=== PATIENT | male | born 1940 | race Two or more races ===

== ENCOUNTER 2018-06-09 19:09 | Inpatient (IN) | payer OTHER, MEDICAID ==
[~2018-06-09] VITALS: Ht 167.6 cm; Wt 71.4 kg
[2018-06-09 20:06] LABS: Basophils # (auto) 0.1 uL; Basophils % (auto) 0.9 % (0.0-2.0); Eosinophils # (auto) 0.2 uL; Hematocrit 31.2 % (41.0-53.0); Hemoglobin 10.9 g/dL (13.5-17.5); Lymphocytes # (auto) 1.6 uL; Lymphocytes % (auto) 26.6 % (10.0-50.0); Mean Corpuscular Hemoglobin 31.2 pg (28.0-32.0); Mean Corpuscular Volume 89.2 fL (80.0-100.0); Monocytes # (auto) 0.6 uL; Monocytes % (auto) 9.3 % (0.0-12.0); Neutrophils # (auto) 3.5 uL; Neutrophils % (auto) 59.2 % (37.0-80.0); Platelet Count (auto) 183 10^3/uL (140-450); Red Cell Distribution Width 14.5 % (11.8-14.3); White Blood Cell 5.9 10^3/uL (4.4-10.8)
[2018-06-09 20:14] LABS: Calcium 8.1 mg/dL (8.5-10.1); Chloride 110 mmol/L (98-107); Potassium 3.6 mmol/L (3.5-5.1); Sodium 144 mmol/L (136-145)
[2018-06-09 20:18] LABS: Alanine Aminotransferase 16 U/L (16-61); Albumin 3.3 g/dL (3.4-5.0); Anion Gap 9 (5-15); Aspartate Aminotransferase 15 U/L (15-37); BUN/Creatinine Ratio 20.5; Blood Urea Nitrogen 16 mg/dL (7-18); Carbon Dioxide 25 mmol/L (21-32); GFR African American 124 mL/min; GFR Non-African American 102 mL/min; Glucose 104 mg/dL (74-106); Magnesium 2.5 mg/dL (1.6-2.6)
[2018-06-09 20:22] LABS: Alkaline Phosphatase 64 U/L (45-117); Bilirubin, Total 0.3 mg/dL (0.2-1.0)
[2018-06-09] MEDS ORDERED: ONDANSETRON HCL 4 MG/2 ML VIAL IV ONE (21:45)
[2018-06-09] MEDS ORDERED: MORPHINE SULF INJ 2 MG/ML SYRINGE 1ML IV ONE (21:45)
[2018-06-09 22:28] LABS: INR 0.92 (0.9-1.15); Prothrombin Time 9.9 sec (9.27-12.13)
[2018-06-09] MEDS ORDERED: MORPHINE SULF INJ 2 MG/ML SYRINGE 1ML IV PRN (23:30)
[2018-06-09] MEDS ORDERED: NITROGLYCERIN 0.4 MG SL TAB SL PRN (23:30)
[2018-06-10] VITALS (8 sets, daily range): BP systolic 145–178; BP diastolic 53–86
[2018-06-10] MEDS ORDERED: ACETAMINOPHEN 500 MG TAB PO PRN (00:45)
[2018-06-10] MEDS ORDERED: ONDANSETRON HCL 4 MG/2 ML VIAL IV PRN (00:45)
[2018-06-10] MEDS ORDERED: LACTULOSE 20Gm/30ML SOLN PO PRN (00:45)
[2018-06-10] MEDS ORDERED: LORazepam 0.5 MG TAB PO PRN (00:45)
[2018-06-10] MEDS ORDERED: TEMAZEPAM 15 MG CAP PO PRN (00:45)
[2018-06-10] MEDS: HYDROcodone-ACET 5/325MG TAB PO PRN ×3 (06:37→21:42)
[2018-06-10 07:44] LABS: Basophils # (auto) 0 uL; Basophils % (auto) 0.7 % (0.0-2.0); Eosinophils # (auto) 0.2 uL; Eosinophils % (auto) 3.8 % (0.0-7.0); Hematocrit 31.2 % (41.0-53.0); Hemoglobin 10.9 g/dL (13.5-17.5); Lymphocytes # (auto) 1.3 uL; Lymphocytes % (auto) 23.6 % (10.0-50.0); Mean Corpuscular Hemoglobin 30.8 pg (28.0-32.0); Monocytes # (auto) 0.4 uL; Neutrophils # (auto) 3.4 uL; Neutrophils % (auto) 63.9 % (37.0-80.0); Nucleated Red Blood Cells % 0.2 %; Platelet Count (auto) 173 10^3/uL (140-450); Red Blood Cells 3.54 10^6/uL (4.5-5.90); Red Cell Distribution Width 14.9 % (11.8-14.3); White Blood Cell 5.3 10^3/uL (4.4-10.8)
[2018-06-10 08:20] LABS: Anion Gap 8 (5-15); Carbon Dioxide 25 mmol/L (21-32); Chloride 109 mmol/L (98-107); Sodium 142 mmol/L (136-145)
[2018-06-10 08:21] LABS: BUN/Creatinine Ratio 23.3; Blood Urea Nitrogen 17 mg/dL (7-18); Calcium 8.4 mg/dL (8.5-10.1); GFR African American 134 mL/min; GFR Non-African American 110 mL/min; Glucose 104 mg/dL (74-106)
[2018-06-10 09:07] LABS: Urine Bacteria NONE SEEN /hpf (None Seen); Urine Blood Negative /uL (Negative); Urine Specific Gravity 1.023 (1.001-1.035); Urine WBC <1 /hpf (0 - 3)
[2018-06-10] MEDS: amLODIPine BESYLATE 5 MG TAB PO SCH (09:21)
[2018-06-10] MEDS: METOPROLOL TARTRATE 25 MG TAB PO SCH ×2 (09:21→21:40)
[2018-06-10] MEDS: FAMOTIDINE 20 MG TAB PO SCH (09:23)
[2018-06-10] MEDS ORDERED: LISINOPRIL 10 MG TAB PO SCH (10:00)
[2018-06-10] MEDS ORDERED: HCTZ 25 MG TAB PO ONE (17:00)
[2018-06-10] MEDS ORDERED: POTASSIUM CHL 10 Meq TABLET PO ONE (17:00)
[2018-06-10] MEDS ORDERED: hydrALAZINE HCL 25 MG TAB PO PRN (17:00)
[2018-06-10] MEDS: LISINOPRIL 10 MG TAB PO SCH (21:41)
[2018-06-11] VITALS (7 sets, daily range): BP systolic 107–137; BP diastolic 54–68
[2018-06-11] MEDS: HYDROcodone-ACET 5/325MG TAB PO PRN ×2 (01:46→11:41)
[2018-06-11] MEDS: FAMOTIDINE 20 MG TAB PO SCH (09:42)
[2018-06-11] MEDS: METOPROLOL TARTRATE 25 MG TAB PO SCH ×2 (09:42→22:00)
[2018-06-11] MEDS: amLODIPine BESYLATE 5 MG TAB PO SCH (09:43)
[2018-06-11] MEDS: LISINOPRIL 10 MG TAB PO SCH ×3 (09:43→22:00)
[2018-06-11] MEDS ORDERED: HCTZ 25 MG TAB PO SCH (10:00)
[2018-06-11] MEDS ORDERED: POTASSIUM CHL 10 Meq TABLET PO SCH (10:00)
[2018-06-11] MEDS ORDERED: METO-158 PO (17:57)
[2018-06-11] MEDS ORDERED: TIMO0.5S38 EACHEYE (17:57)
[2018-06-11] MEDS ORDERED: ATOR20TA50 PO (17:57)
[2018-06-11] MEDS ORDERED: LISI10TA6 PO (17:57)
[2018-06-11] MEDS ORDERED: FAMO-12 PO (17:57)
[2018-06-12] VITALS (7 sets, daily range): BP systolic 106–152; BP diastolic 48–82
[2018-06-12] MEDS: HYDROcodone-ACET 5/325MG TAB PO PRN (11:56)
[2018-06-12] MEDS: FAMOTIDINE 20 MG TAB PO SCH (11:57)
[2018-06-12] MEDS: amLODIPine BESYLATE 5 MG TAB PO SCH (11:57)
[2018-06-12] MEDS: LISINOPRIL 10 MG TAB PO SCH ×2 (11:57→21:17)
[2018-06-12] MEDS: METOPROLOL TARTRATE 25 MG TAB PO SCH ×2 (11:58→21:17)
[2018-06-12] MEDS: TAMSULOSIN HYDROCHLORIDE 0.4 MG CAP PO SCH (17:17)
[2018-06-13] MEDS: HYDROcodone-ACET 5/325MG TAB PO PRN ×3 (04:22→19:00)
[2018-06-13 05:08] VITALS: BP 103/49
[2018-06-13 07:48] VITALS: BP 122/54
[2018-06-13 08:00] VITALS: BP 126/82
[2018-06-13] MEDS: LISINOPRIL 10 MG TAB PO SCH (10:00)
[2018-06-13] MEDS: amLODIPine BESYLATE 5 MG TAB PO SCH (10:00)
[2018-06-13] MEDS: METOPROLOL TARTRATE 25 MG TAB PO SCH ×2 (10:00→21:38)
[2018-06-13] MEDS: FAMOTIDINE 20 MG TAB PO SCH (10:00)
[2018-06-13 11:58] VITALS: BP 140/62
[2018-06-13] MEDS ORDERED: ADENOSINE 59 MG in GIVE UN-DILUTED 0 ML IV ONE (12:00)
[2018-06-13] MEDS ORDERED: MORPHINE SULF INJ 2 MG/ML SYRINGE 1ML IV PRN (16:15)
[2018-06-13 17:31] VITALS: BP 117/65
[2018-06-13] MEDS: TAMSULOSIN HYDROCHLORIDE 0.4 MG CAP PO SCH (18:30)
[2018-06-13 22:00] VITALS: BP 92/55
[2018-06-14] MEDS: HYDROcodone-ACET 5/325MG TAB PO PRN ×2 (04:39→11:29)
[2018-06-14 05:00] VITALS: BP 106/60
[2018-06-14] MEDS ORDERED: MIDAZOLAM HCL 1MG/1ML-2 ML VIAL ONE (07:19)
[2018-06-14] MEDS ORDERED: METOCLOPRAMIDE HCL 5MG/ml INJ 2ml VIAL ONE (07:20)
[2018-06-14] MEDS ORDERED: ETOMIDATE (2MG/ML) 20ML VIAL IV ONE (07:21)
[2018-06-14] MEDS ORDERED: ROCURONIUM 10MG/ML 10ML VIAL IV ONE (07:21)
[2018-06-14] MEDS ORDERED: fentaNYL CITRATE 100 MCG/2 ML VL ONE (07:30)
[2018-06-14] MEDS ORDERED: hydrALAZINE HCL 20 MG/ML VL ONE (07:55)
[2018-06-14] MEDS ORDERED: KETOROLAC TROMETH 30 MG/ML 1ML VIAL ONE (07:56)
[2018-06-14 09:00] VITALS: BP 119/59
[2018-06-14] MEDS: METOPROLOL TARTRATE 25 MG TAB PO SCH (09:53)
[2018-06-14] MEDS: FAMOTIDINE 20 MG TAB PO SCH (09:53)
[2018-06-14] MEDS ORDERED: LISINOPRIL 10 MG TAB PO SCH (10:00)
[2018-06-14] MEDS ORDERED: SODIUM CHLORIDE 0.9% 1,000 ML IV SCH (10:30)
[2018-06-14 13:00] VITALS: BP 130/62
[2018-06-14] MEDS ORDERED: NITR0.4S29 SL (14:17)
[2018-06-14] MEDS ORDERED: ASPI81CH43 PO (14:17)
[2018-06-14 16:40] VITALS: BP 130/62
== END 2018-06-14 18:22 | disposition home or self-care (01) | DRG 303 ==
LOC: EDBD 19:09 → ER 19:19 → TELE 19:20 → TELE-WESTW 06-10 02:25
PROVIDERS: ADMIT Nurse Practitioner Family; ATTEND Internal Medicine
DX: I25.110 Atherosclerotic heart disease of native coronary artery with unstable angina pectoris (principal); E44.1 Mild protein-calorie malnutrition; D63.8 Anemia in other chronic diseases classified elsewhere; I10 Essential (primary) hypertension; E78.5 Hyperlipidemia, unspecified; K21.9 Gastro-esophageal reflux disease without esophagitis; H40.89 Other specified glaucoma; H54.8 Legal blindness, as defined in USA; D50.9 Iron deficiency anemia, unspecified; Z82.49 Family history of ischemic heart disease and other diseases of the circulatory system; Z68.25 Body mass index [BMI] 25.0-25.9, adult; Z90.49 Acquired absence of other specified parts of digestive tract; Z87.891 Personal history of nicotine dependence; I25.2 Old myocardial infarction
CPT/HCPCS: 36415; 71045; 78452; 80048; 80053; 81001; 83735; 83880; 84443; 84484; 85025; 85610; 85730; 93005; 93017; 93306; A6257; J0153; J1885; J2250; J2405